=== PATIENT | male | born 1985 | race Two or more races ===

== ENCOUNTER → 2025-09-14 | Outpatient (CLI) | payer MEDICAID, SELFPAY ==
--- NOTE | 2025-09-14 09:48 | XR_ITS ---
Examination: Shoulder, right, 3 views Technique: Shoulder AP internal rotation, AP external rotation, Y view shoulder, 3 views Exam date and time : September 14, 2025, 10:00 a.m. INDICATIONS: Right shoulder pain, multiple seizures over the last several years FINDINGS: Large Hill-Sachs deformity humeral head Advanced osteoarthritis glenohumeral joint No acute fracture Acute dislocation IMPRESSION: Large Hill-Sachs deformity Advanced osteoarthritis glenohumeral joint
--- NOTE | 2025-09-14 09:49 | XR_ITS ---
EXAMINATION: Acromioclavicular joints bilateral 2 views TECHNIQUE: Bilateral AP acromioclavicular joints 2 views with without weights Date and time: September 14 5:10 a.m. INDICATIONS: Seizures over the last 2 years with injury to the right shoulder, right shoulder AC joint pain FINDINGS: No acute clavicle fractures No AC joint separations IMPRESSION: No AC joint separation
== END | disposition home or self-care (01) ==
PROVIDERS: PCP Physician Assistant; Referring Provider Nurse Practitioner Primary Care; Visit Provider Nurse Practitioner Primary Care
DX: M21.821 Other specified acquired deformities of right upper arm (principal); S49.91XS Unspecified injury of right shoulder and upper arm, sequela; X58.XXXS Exposure to other specified factors, sequela; M19.011 Primary osteoarthritis, right shoulder
CPT/HCPCS: 73030; 73050